=== PATIENT | male | born 1995 | race Caucasian/White ===

== ENCOUNTER 2016-09-07 15:21 | Emergency (ER) | payer MEDICAID ==
--- NOTE | 2016-09-07 16:03 | ED Physician Chart ---
Chief Complaint/HPI - Patient Information Date Seen:: 09/07/16 Time Seen:: 15:58 Chief Complaint:: st/cough History of Present Illness:: pt complains of 1-[address] and cough prod of yellow sputum. he has a hx of asthma but has no inhalers for some time and says he never used them. no feer. no gi sx. no n/v/d. no rash. no stiff neck, no BAHENA he missed work today in [place] where he works in a [employer]. Allergies:: Allergies Allergy/AdvReac Type Severity Reaction Status Date / Time No Known Allergies Allergy Verified 09/07/16 15:37 Vitals:: Vital Signs - 8 hr 09/07/16 15:37 Temp 98.9 F HR 99 RR 16 BP 130/80 O2 Sat % 100 Historian:: Patient Review of Systems - Review of Systems General/Constitutional: No fever, No chills, No weight loss, No weakness, No diaphoresis, No edema, No loss of appetite Skin: No skin lesions, No rash, No bruising Head: No headache, No light-headedness Eyes: No loss of vision, No pain, No diplopia ENT: No earache, No nasal drainage, Sore throat, No tinnitus Neck: No neck pain, No swelling, No thyromegaly, No stiffness, No mass noted Cardio Vascular: No chest pain, No palpitations, No PND, No orthopnea, No edema Pulmonary: No SOB, Cough, Sputum, No wheezing GI: No nausea, No vomiting, No diarrhea, No pain, No melena, No hematochezia, No constipation, No hematemesis G/U: No dysuria, No frequency, No hematuria Musculoskeletal: No bone or joint pain, No back pain, No muscle pain Endocrine: No polyuria, No polydipsia Psychiatric: No prior psych history, No depression, No anxiety, No suicidal ideation Hematopoietic: No bruising, No lymphadenopathy Allergic/Immuno: No urticaria, No angioedema Neurological: No syncope, No focal symptoms, No weakness, No paresthesia, No headache, No seizure, No dizziness, No confusion, No vertigo Past Medical History - Past Medical History Past Medical History: No significant medical hx, Asthma/COPD Social History: Non Smoker Medication: Reviewed Family Medical History - Family Member Mother Living Status: Still Living Hx Family Diabetes: Yes Physical Exam - Physical Examination General/Constitutional: Awake, Well-developed, well-nourished, Alert, No distress, GCS 15, Non-toxic appearing, Ambulatory Head: Atraumatic Eyes: Lids, conjuctiva normal, PERRL, EOMI Skin: Nl inspection, No rash, No skin lesions, No ecchymosis, Well hydrated, No lymphadenopathy ENMT: External ears, nose nl, Nasal exam nl, Lips, teeth, gums nl Other ENMT comments:: mildly red pharynx w no hypertrophy no occlusion. no stridor. Neck: Nontender, Full ROM w/o pain, No JVD, No nuchal rigidity, No bruit, No mass, No stridor Respiratory: Nl effort/Exclusion, Clear to Auscultation, No Wheeze/Rhonchi/Rales Cardio Vascular: RRR, No murmur, gallop, rubs, NL S1 S2 GI: No tenderness/rebounding/guarding, No organomegaly, No hernia, Normal BS's, Nondistended, No mass/bruits, No McBurney tenderness : No CVA tenderness Extremities: No tenderness or effusion, Full ROM, normal strength in all extremities, No edema, Normal digits & nails Neuro/Psych: Alert/oriented, DTR's symmetric, Normal sensory exam, Normal motor strength, Judgement/insight normal, Mood normal, Normal gait, No focal deficits Misc: normal gait, Normal back, No paraspinal tenderness ED Septic Shock - . Is Septic Shock (SBP<90, OR Lactate>4 mmol\L) present?: No - <6hrs of presentation: Vital Signs: Vital Signs - 8 hr 09/07/16 15:37 Temp 98.9 F HR 99 RR 16 BP 130/80 O2 Sat % 100 Reassessment (Disposition) - Reassessment Reassessment Condition:: Unchanged - Diagnosis Diagnosis:: 1 bronchitis 2 pharyngitis - Aftercare/Follow up Instructions Aftercare/Follow-Up Instructions:: Counseled pt regarding lab results/diagnosis & need follow up Medication Prescribed:: rx zpac, albuteol - Patient Disposition Discharge/Transfer:: Home Condition at Disposition:: Stable
== END 2016-09-07 16:05 | disposition home or self-care (01) ==
LOC: ER 15:21
DX: J02.9 Acute pharyngitis, unspecified (principal); J40 Bronchitis, not specified as acute or chronic
CPT/HCPCS: Z7502

== ENCOUNTER 2018-04-23 00:18 | Emergency (ER) | payer MEDICAID ==
--- NOTE | 2018-04-23 00:56 | ED Physician Chart ---
ED Chief Complaint/HPI - Patient Information Date Seen:: 04/23/18 Time Seen:: 00:52 Chief Complaint:: rt 2nd digit pain History of Present Illness:: 22 yr old male who jammed his rt middle finger with pain swelling rt middle finger at pip area some swelling able to move it but has some pain Allergies:: Allergies Allergy/AdvReac Type Severity Reaction Status Date / Time No Known Allergies Allergy Verified 04/23/18 00:32 Vitals:: Vital Signs - 8 hr 04/23/18 00:20 Temp 98.1 F HR 109 RR 20 BP 132/94 O2 Sat % 97 ED Review of Systems - Review of Systems General/Constitutional: No fever Skin: No skin lesions Head: No headache Eyes: No loss of vision ENT: No earache Neck: No neck pain Cardio Vascular: No chest pain Pulmonary: No SOB GI: No vomiting G/U: No dysuria Endocrine: No polyuria Psychiatric: No prior psych history Hematopoietic: No bruising Allergic/Immuno: No urticaria Neurological: No syncope Family Medical History - Family Member Mother History Unknown: Yes Living Status: Still Living Hx Family Diabetes: Yes ED Septic Shock - . Is Septic Shock (SBP<90, OR Lactate>4 mmol\L) present?: No - <6hrs of presentation: Vital Signs: Vital Signs - 8 hr 04/23/18 00:20 Temp 98.1 F HR 109 RR 20 BP 132/94 O2 Sat % 97 ED Reassessment (Disposition) - Reassessment Reassessment Condition:: Unchanged - Diagnosis Diagnosis:: sprain rt ring finger - Patient Disposition Discharge/Transfer:: Home Condition at Disposition:: Stable
--- NOTE | 2018-04-23 08:15 | Diagnostic Imaging Report ---
Right hand (3 views) HISTORY: Pain, trauma No acute bony abnormalities. No fractures. No dislocation. IMPRESSION: No acute abnormalities. In the presence of recent trauma and persistent symptoms, a repeat radiograph in 5-7 days may be helpful for detection of a subtle or occult fracture.
== END 2018-04-23 01:45 | disposition home or self-care (01) ==
LOC: ER 00:18
DX: S63.612A Unspecified sprain of right middle finger, initial encounter (principal); W23.0XXA Caught, crushed, jammed, or pinched between moving objects, initial encounter; Y93.89 Activity, other specified; Y92.89 Other specified places as the place of occurrence of the external cause; Y99.8 Other external cause status
CPT/HCPCS: 73130-TC-RT; Z7502

== ENCOUNTER 2018-10-31 06:16 | Inpatient (IN) | payer MEDICAID ==
--- NOTE | 2018-10-31 06:47 | ED Physician Chart ---
ED Chief Complaint/HPI - Patient Information Date Seen:: 10/31/18 Time Seen:: 06:47 Chief Complaint:: Chest pain History of Present Illness:: 22 yo male had intermittent chest pain for 5 days, awaken this morning by the chest pain that was worse than before. The pain would be triggered by deep breath and cough. The pain is located in the left chest without radiation. Patient denied long distance traveling. 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 Allergies:: Allergies Allergy/AdvReac Type Severity Reaction Status Date / Time No Known Allergies Allergy Verified 10/31/18 06:30 Vitals:: Vital Signs - 8 hr 10/31/18 06:30 Temp 97.9 F HR 65 RR 18 BP 140/71 O2 Sat % 99 ED Review of Systems - Review of Systems General/Constitutional: No fever, No chills Skin: No rash Head: Headache Eyes: No pain ENT: No earache Neck: No neck pain Cardio Vascular: Chest pain, Palpitations Pulmonary: SOB GI: No nausea, No vomiting Musculoskeletal: No bone or joint pain Neurological: No focal symptoms ED Past Medical History - Past Medical History Past Medical History: Asthma/COPD Social History: Non Smoker, No Alcohol, No Drug Use Surgical History: None Family Medical History - Family Member Mother History Unknown: Yes Living Status: Still Living Hx Family Diabetes: Yes ED Physical Exam - Physical Examination General/Constitutional: Awake, Alert Head: Atraumatic Eyes: PERRL, EOMI Skin: No skin lesions ENMT: Nasal exam nl Neck: No nuchal rigidity Cardio Vascular: RRR, No murmur, gallop, rubs, NL S1 S2 GI: No tenderness/rebounding/guarding Extremities: normal strength in all extremities Neuro/Psych: No focal deficits ED Assessment - Assessment General Assessment: Chest pain Obesity Assessment/Comments:: CBC, CMP, Trop, CPK, BNP, lipid panel, D-Dimer CXR, EKG Aspirin 325 mg po Nitroglycerin 0.4 mg sl Morphine 1 mg IV ED Septic Shock - . Is Septic Shock (SBP<90, OR Lactate>4 mmol\L) present?: No - <6hrs of presentation: Vital Signs: Vital Signs - 8 hr 10/31/18 06:30 Temp 97.9 F HR 65 RR 18 BP 140/71 O2 Sat % 99 ED Reassessment (Disposition) - Reassessment Reassessment Condition:: Improved
[2018-10-31] MEDS ORDERED: Sodium Chloride 0.9% 1,000 ML IV ONE (07:05)
[2018-10-31 07:15] LABS: % BASOPHILS 1.5 % (0.0-2.0); % EOSINOPHILS 2.1 % (0.0-5.0); % LYMPHOCYTES 21.2 % (20.0-50.0); % MONOCYTES 6.8 % (2.0-10.0); % NEUTROPHILS 68.4 % (40.0-80.0); BASOPHILE ABSOLUTE 0.2 Th/cumm (0-0.2); EOSINOPHILE ABSOLUTE 0.2 Th/cmm (0.1-0.4); HEMOGLOBIN 16.3 gm/dL (12-16); LYMPHOCYTE ABSOLUTE 2.5 Th/cmm (1.5-3.0); MEAN CELL VOLUME 84.4 fl (80-99); MEAN CORPUSCULAR HEMOGLOBIN 29.2 pg (26.0-30.0); MEAN CORPUSCULAR HGB CONC 34.7 pg (28.0-36.0); MEAN PLATELET VOLUME 10.2 fl; MONOCYTE ABSOLUTE 0.8 Th/cmm (0.3-1.0); NEUTROPHILE ABSOLUTE 8.2 Th/cmm (1.8-8.0); PLATELET COUNT 256 Th/cmm (150-400); RED BLOOD COUNT 5.57 Mil/cmm (4.30-5.70); RED CELL DISTRIBUTION WIDTH 12.3 % (11.5-20.0); WHITE BLOOD COUNT 11.9 Th/cmm (4.8-10.8)
[2018-10-31] MEDS ORDERED: Morphine Sulfate 2 mg/mL 1mL Syr IV STA (07:21)
[2018-10-31 07:41] LABS: ALB/GLOB RATIO 1.6 (1.0-1.8); ALBUMIN 4.5 gm/dL (4.2-5.5); ALKALINE PHOSPHATASE 75 U/L (34-104); ANION GAP 13.4 (7.0-16.0); BILIRUBIN,TOTAL 0.5 mg/dL (0.3-1.0); BUN - UREA NITROGEN 15 mg/dL (7-25); CALCIUM SERUM 9.7 mg/dL (8.6-10.3); CARBON DIOXIDE 27.1 mEq/L (21.0-31.0); CHLORIDE 101 mEq/L (98-107); CHOLESTEROL 156 mg/dL (<200); CREATININE - SERUM 0.9 mg/dL (0.7-1.3); CREATININE KINASE 211 U/L (30-223); GFR AFRICAN-AMERICAN > 60.0 ml/min (>90); GFR NON AFRICAN-AMERICAN > 60.0 ml/min; GLUCOSE 122 mg/dL (70-105); HDL -HIGH DENSITY LIPOPROTEIN 41 mg/dL (23-92); POTASSIUM SERUM 3.5 mEq/L (3.5-5.1); SGOT 85 U/L (13-39); SGPT/ALT 197 U/L (7-52); SODIUM SERUM 138 mEq/L (136-145); TOTAL PROTEIN,SERUM 7.3 gm/dL (6.0-8.3); TRIGLYCERIDES 165 mg/dL (<150)
[2018-10-31] MEDS ORDERED: Morphine Sulfate 2 mg/mL 1mL Syr ONE (07:58)
--- NOTE | 2018-10-31 08:46 | Diagnostic Imaging Report ---
CHEST X-RAY: AP view INDICATION: pain COMPARISON: None FINDINGS: There is mild elevation of the right hemidiaphragm. Suboptimal lung lungs are noted. There is no focal consolidation or pleural effusions The heart is at the upper limits of normal in size. The osseous structures demonstrate no acute abnormalities. IMPRESSION: Suboptimal lung volumes. No focal consolidation identified.
[2018-10-31 12:59] LABS: AMPHETAMINE URINE NEGATIVE (NEGATIVE); BARBITURATES URINE NEGATIVE (NEGATIVE); BENZODIAZEPINES QUAL URINE NEGATIVE (NEGATIVE); CANNABINOID THC POSITIVE (NEGATIVE); COCAINE METABOLITE QUAL URINE NEGATIVE (NEGATIVE); METHADONE URINE NEGATIVE (NEGATIVE); METHAMPHETAMINES QUAL URINE NEGATIVE (NEGATIVE); OPIATES (MORPHINE) QUAL. URINE POSITIVE (NEGATIVE); PHENCYCLIDINE (PCP) URINE NEGATIVE (NEGATIVE); TRICYCLICS (TCA) QUAL. URINE NEGATIVE (NEGATIVE)
--- NOTE | 2018-10-31 14:46 | General Progress Note ---
Subjective - Review of Systems Service Date: 10/31/18 Subjective: Patient has chest pain increased with deep breathing Objective - Results Result Diagrams: 10/31/18 07:00 10/31/18 07:00 Recent Labs: Laboratory Last Values WBC 11.9 Th/cmm (4.8-10.8) H 10/31/18 07:00 RBC 5.57 Mil/cmm (4.30-5.70) 10/31/18 07:00 Hgb 16.3 gm/dL (12-16) 10/31/18 07:00 Hct 47.0 % (41.0-60) 10/31/18 07:00 MCV 84.4 fl (80-99) 10/31/18 07:00 MCH 29.2 pg (26.0-30.0) 10/31/18 07:00 MCHC Differential 34.7 pg (28.0-36.0) 10/31/18 07:00 RDW 12.3 % (11.5-20.0) 10/31/18 07:00 Plt Count 256 Th/cmm (150-400) 10/31/18 07:00 MPV 10.2 fl 10/31/18 07:00 Neutrophils % 68.4 % (40.0-80.0) 10/31/18 07:00 Lymphocytes % 21.2 % (20.0-50.0) 10/31/18 07:00 Monocytes % 6.8 % (2.0-10.0) 10/31/18 07:00 Eosinophils % 2.1 % (0.0-5.0) 10/31/18 07:00 Basophils % 1.5 % (0.0-2.0) 10/31/18 07:00 D-Dimer 183 ng/mL (100-400) 10/31/18 07:00 Sodium 138 mEq/L (136-145) 10/31/18 07:00 Potassium 3.5 mEq/L (3.5-5.1) 10/31/18 07:00 Chloride 101 mEq/L (98-107) 10/31/18 07:00 Carbon Dioxide 27.1 mEq/L (21.0-31.0) 10/31/18 07:00 Anion Gap 13.4 (7.0-16.0) 10/31/18 07:00 BUN 15 mg/dL (7-25) 10/31/18 07:00 Creatinine 0.9 mg/dL (0.7-1.3) 10/31/18 07:00 Est GFR ( Amer) > 60.0 ml/min (>90) 10/31/18 07:00 Est GFR (Non-Af Amer) > 60.0 ml/min 10/31/18 07:00 BUN/Creatinine Ratio 16.7 10/31/18 07:00 Glucose 122 mg/dL (70-105) H 10/31/18 07:00 POC Glucose 111 MG/DL (70 - 105) H 10/31/18 11:48 Calcium 9.7 mg/dL (8.6-10.3) 10/31/18 07:00 Total Bilirubin 0.5 mg/dL (0.3-1.0) 10/31/18 07:00 AST 85 U/L (13-39) H 10/31/18 07:00 ALT 197 U/L (7-52) H 10/31/18 07:00 Alkaline Phosphatase 75 U/L (34-104) 10/31/18 07:00 Creatine Kinase 211 U/L (30-223) 10/31/18 07:00 Troponin I < 0.01 ng/mL (0.01-0.05) L 10/31/18 07:00 B-Natriuretic Peptide < 5.0 pg/mL (5.0-100.0) L 10/31/18 07:00 Total Protein 7.3 gm/dL (6.0-8.3) 10/31/18 07:00 Albumin 4.5 gm/dL (4.2-5.5) 10/31/18 07:00 Globulin 2.8 gm/dL 10/31/18 07:00 Albumin/Globulin Ratio 1.6 (1.0-1.8) 10/31/18 07:00 Triglycerides 165 mg/dL (<150) H 10/31/18 07:00 Cholesterol 156 mg/dL (<200) 10/31/18 07:00 LDL Cholesterol Direct 102 mg/dL (75-193) 10/31/18 07:00 HDL Cholesterol 41 mg/dL (23-92) 10/31/18 07:00 Urine Opiates Screen POSITIVE (NEGATIVE) H 10/31/18 11:45 Urine Methadone Screen NEGATIVE (NEGATIVE) 10/31/18 11:45 Ur Barbiturates Screen NEGATIVE (NEGATIVE) 10/31/18 11:45 Ur Tricyclics Screen NEGATIVE (NEGATIVE) 10/31/18 11:45 Ur Phencyclidine Scrn NEGATIVE (NEGATIVE) 10/31/18 11:45 Amphetamines Screen NEGATIVE (NEGATIVE) 10/31/18 11:45 U Methamphetamines Scrn NEGATIVE (NEGATIVE) 10/31/18 11:45 U Benzodiazepines Scrn NEGATIVE (NEGATIVE) 10/31/18 11:45 U Cocaine Metab Screen NEGATIVE (NEGATIVE) 10/31/18 11:45 U Cannabinoids Screen POSITIVE (NEGATIVE) H 10/31/18 11:45 - Physical Exam Vitals and I&O: Vital Signs Temp 96.3 F 10/31/18 11:58 Pulse 69 10/31/18 11:58 Resp 18 10/31/18 12:56 BP 141/78 10/31/18 11:58 Pulse Ox 97 10/31/18 11:58 Intake & Output 10/30/18 10/31/18 10/31/18 18:59 06:59 18:59 Weight (lbs) 112.491 kg Other: Weight Source Patient stated General: Alert, Oriented x3, No acute distress HEENT: Mucous membr. moist/pink Neck: Supple, +2 carotid pulse wo bruit, Other (no organomegaly) Cardiovascular: Regular rate, Normal S1, Normal S2, Systolic murmurs Lungs: Clear to auscultation Assessment/Plan - Assessment Assessment: Chest pain Marijuana date Normal. Dependence Bradycardia Echocardiogram troponin levels normal
--- NOTE | 2018-10-31 15:43 | Cardiology ---
10/31/[address] Panda Martinez. M-MODE ECHOCARDIOGRAM: Mitral valve, anterior leaflet of mitral valve shows normal excursion, EF velocity. Posterior leaflet of mitral valve shows normal excursion. Left ventricular posterior wall showed normal thickness, excursion. Interventricular septum showed normal thickness, excursion, ejection fraction 70%. Left atrium normal. Aortic root shows normal dimension, normal excursion of aortic leaflets. CONCLUSION: Normal M-mode echo, ejection fraction 70%. 2D ECHO: Long axis view showed normal sized left ventricle with normal wall motion. Mitral valve shows normal excursion. Left atrium normal. Aortic root shows normal dimension, normal excursion of aortic leaflets. Short axis view of mitral valve normal. Short axis view of aortic valve normal. Apical four chamber view showed normal sized left ventricle, left atrium, right ventricle, right atrium, tricuspid and mitral valve. Ejection fraction 70%. CONCLUSION: Normal 2D echo, ejection fraction 70%. Doppler study showed trace mitral regurgitation, trace tricuspid regurgitation, right ventricular systolic pressure 29 mmHg. [facility]# [id number]
[2018-10-31 15:50] VITALS: BP 141/78
--- NOTE | 2018-11-01 00:11 | History & Physical ---
ADMIT DATE: 10/31/2018 CHIEF COMPLAINT: Chest pain. HISTORY OF PRESENT ILLNESS: A 22-year-old male who was admitted for evaluation of left-sided chest pain radiating to the left shoulder area. Denies any associated dizziness, palpitation, no diaphoresis. Denies any underlying history of cardiac history. Denies any palpitations. No nausea, no vomiting, no cough, no fever, no chills. The symptoms started about 4 days ago, progressively got worse. PAST MEDICAL HISTORY: Denies. PAST SURGICAL HISTORY: Denies. FAMILY HISTORY: Noncontributory. SOCIAL HISTORY: Positive for marijuana. He denies any alcohol, tobacco smoking. CURRENT MEDICATIONS: Per medication list. ALLERGIES: No known drug allergies. REVIEW OF SYSTEMS: As per HPI. A 12-point system is negative. PHYSICAL EXAMINATION: VITAL SIGNS: Temperature 97.6, pulse 73, respirations 19, blood pressure 144/76. HEENT: Unremarkable. HEART: S1 and S2, normal. LUNGS: Clear to auscultation bilaterally. ABDOMEN: Soft, nontender, . EXTREMITIES: No edema or calf tenderness. AVAILABLE LABORATORY DATA: Echocardiogram results reviewed. ASSESSMENT: 1. Chest pain. 2. Leukocytosis, most likely reactive. 3. Elevated liver enzymes. 4. Obesity. 5. Marijuana use. PLAN: Admit to tele unit. Cardiology consulted. Serial troponins ordered. Echocardiogram ordered. Case discussed with Cardiology. The patient was counseled on avoidance of drugs. Obtain hepatitis panel, ultrasound of the abdomen. We will order liver enzymes. The patient advised to follow primary MD upon discharge. The patient is medically stable. We will follow up on further cardiac recommendations. [facility]# [id number]
--- NOTE | 2018-11-01 01:46 | Consultation ---
DATE OF CONSULTATION: 10/31/[address] Martinez. HISTORY AND PHYSICAL: This 22 years old male patient, who has been complaining of chest pain for the last 2 days, increased with deep breathing. Following this, the patient took marijuana to get some relief. The patient was brought to the hospital. The patient's troponin levels were normal. The patient is opiate positive as patient got morphine in the ER in the urine collection at a later time. PAST MEDICAL HISTORY: Unremarkable. FAMILY HISTORY: Unremarkable. SOCIAL HISTORY: No history of smoking or alcohol abuse. The patient takes marijuana. PHYSICAL EXAMINATION: VITAL SIGNS: Blood pressure 120/70, pulse 50, respirations 28. HEAD: Normocephalic. No lumps or bumps. EYES: Pupils equal, reactive to light. Fundi showing AV nicking, sclerae white, conjunctivae pink. NECK: Carotid 2+. Normal upstroke. JVD flat. Thyroid not palpable. Lymph nodes not palpable. LUNGS: Clear. HEART: Regular rhythm. S1, S2, S3, S4, sinus bradycardia. ABDOMEN: Soft. Liver and spleen not palpable. No organomegaly. Bowel sounds active. NEUROLOGIC: Unremarkable. EXTREMITIES: Peripheral pulses 2+. No pedal edema. CLINICAL IMPRESSION: 1. Atypical chest pain. 2. Marijuana addict. 3. Sinus bradycardia. PLAN: The patient to continue present care. Start the patient on Motrin and follow the patient in telemetry bed. JOB# [id number]
--- NOTE | 2018-11-01 10:38 | Diagnostic Imaging Report ---
Ultrasound abdomen HISTORY: Elevated liver enzymes COMPARISON: None Technique: Sonography of the abdomen was performed in multiple planes. FINDINGS: Exam is limited due to bowel gas and body habitus. The liver demonstrates mild increased echogenicity and measures 18.6 cm. The liver margins are not well-defined however no obvious focal lesions. No discrete gallstones. There may be minimal gallbladder sludge. No gallbladder wall thickening. The common bile duct measures 2 mm. Evaluation of pancreas is limited due to bowel gas. The right kidney measures 11.1 x 6.5 cm. The left kidney measures 12.5 x 5.8 cm. No evidence of focal lesions or hydronephrosis. Note the renal margins are not well-defined The spleen measures 12.2 cm. IMPRESSION: There may be minimal gallbladder sludge. No discrete gallstones identified. Mild hepatomegaly with mild increased echogenicity which may be due to underlying fatty infiltration. Correlate with liver function tests. Borderline prominent spleen.
--- NOTE | 2018-11-01 11:37 | General Progress Note ---
Subjective - Review of Systems Service Date: 11/01/18 Subjective: Patient has chest pain increased with deep breathing which has improved Objective - Results Result Diagrams: 10/31/18 07:00 10/31/18 07:00 Recent Labs: Laboratory Last Values WBC 11.9 Th/cmm (4.8-10.8) H 10/31/18 07:00 RBC 5.57 Mil/cmm (4.30-5.70) 10/31/18 07:00 Hgb 16.3 gm/dL (12-16) 10/31/18 07:00 Hct 47.0 % (41.0-60) 10/31/18 07:00 MCV 84.4 fl (80-99) 10/31/18 07:00 MCH 29.2 pg (26.0-30.0) 10/31/18 07:00 MCHC Differential 34.7 pg (28.0-36.0) 10/31/18 07:00 RDW 12.3 % (11.5-20.0) 10/31/18 07:00 Plt Count 256 Th/cmm (150-400) 10/31/18 07:00 MPV 10.2 fl 10/31/18 07:00 Neutrophils % 68.4 % (40.0-80.0) 10/31/18 07:00 Lymphocytes % 21.2 % (20.0-50.0) 10/31/18 07:00 Monocytes % 6.8 % (2.0-10.0) 10/31/18 07:00 Eosinophils % 2.1 % (0.0-5.0) 10/31/18 07:00 Basophils % 1.5 % (0.0-2.0) 10/31/18 07:00 D-Dimer 183 ng/mL (100-400) 10/31/18 07:00 Sodium 138 mEq/L (136-145) 10/31/18 07:00 Potassium 3.5 mEq/L (3.5-5.1) 10/31/18 07:00 Chloride 101 mEq/L (98-107) 10/31/18 07:00 Carbon Dioxide 27.1 mEq/L (21.0-31.0) 10/31/18 07:00 Anion Gap 13.4 (7.0-16.0) 10/31/18 07:00 BUN 15 mg/dL (7-25) 10/31/18 07:00 Creatinine 0.9 mg/dL (0.7-1.3) 10/31/18 07:00 Est GFR ( Amer) > 60.0 ml/min (>90) 10/31/18 07:00 Est GFR (Non-Af Amer) > 60.0 ml/min 10/31/18 07:00 BUN/Creatinine Ratio 16.7 10/31/18 07:00 Glucose 122 mg/dL (70-105) H 10/31/18 07:00 POC Glucose 111 MG/DL (70 - 105) H 10/31/18 11:48 Calcium 9.7 mg/dL (8.6-10.3) 10/31/18 07:00 Total Bilirubin 0.5 mg/dL (0.3-1.0) 10/31/18 07:00 AST 85 U/L (13-39) H 10/31/18 07:00 ALT 197 U/L (7-52) H 10/31/18 07:00 Alkaline Phosphatase 75 U/L (34-104) 10/31/18 07:00 Creatine Kinase 211 U/L (30-223) 10/31/18 07:00 Troponin I < 0.01 ng/mL (0.01-0.05) L 10/31/18 22:55 B-Natriuretic Peptide < 5.0 pg/mL (5.0-100.0) L 10/31/18 07:00 Total Protein 7.3 gm/dL (6.0-8.3) 10/31/18 07:00 Albumin 4.5 gm/dL (4.2-5.5) 10/31/18 07:00 Globulin 2.8 gm/dL 10/31/18 07:00 Albumin/Globulin Ratio 1.6 (1.0-1.8) 10/31/18 07:00 Triglycerides 165 mg/dL (<150) H 10/31/18 07:00 Cholesterol 156 mg/dL (<200) 10/31/18 07:00 LDL Cholesterol Direct 102 mg/dL (75-193) 10/31/18 07:00 HDL Cholesterol 41 mg/dL (23-92) 10/31/18 07:00 Urine Opiates Screen POSITIVE (NEGATIVE) H 10/31/18 11:45 Urine Methadone Screen NEGATIVE (NEGATIVE) 10/31/18 11:45 Ur Barbiturates Screen NEGATIVE (NEGATIVE) 10/31/18 11:45 Ur Tricyclics Screen NEGATIVE (NEGATIVE) 10/31/18 11:45 Ur Phencyclidine Scrn NEGATIVE (NEGATIVE) 10/31/18 11:45 Amphetamines Screen NEGATIVE (NEGATIVE) 10/31/18 11:45 U Methamphetamines Scrn NEGATIVE (NEGATIVE) 10/31/18 11:45 U Benzodiazepines Scrn NEGATIVE (NEGATIVE) 10/31/18 11:45 U Cocaine Metab Screen NEGATIVE (NEGATIVE) 10/31/18 11:45 U Cannabinoids Screen POSITIVE (NEGATIVE) H 10/31/18 11:45 - Physical Exam Vitals and I&O: Vital Signs Temp 97.6 F 11/01/18 11:19 Pulse 68 11/01/18 11:19 Resp 19 11/01/18 11:19 BP 130/87 11/01/18 11:19 Pulse Ox 98 11/01/18 11:19 Intake & Output 10/31/18 11/01/18 11/01/18 18:59 06:59 18:59 Intake Total 325 400 Balance 325 400 Weight (lbs) 112.491 kg 112.491 kg Intake: Oral 325 400 Other: # Voids 1 1 Weight Source Bedscale Bedscale Active Medications: Current Medications Ibuprofen (Motrin) 600 mg PO TID PRN PRN Reason: Pain (Moderate) Stop: 12/30/18 20:59 General: Alert, Oriented x3, No acute distress HEENT: Mucous membr. moist/pink Neck: Supple, +2 carotid pulse wo bruit, Other (no organomegaly) Cardiovascular: Regular rate, Normal S1, Normal S2, Systolic murmurs Lungs: Clear to auscultation Assessment/Plan - Assessment Assessment: Chest pain Marijuana date Normal. Dependence Echocardiogram normal Bradycardia Echocardiogram troponin levels normal - Plan Plan: Continue present management echocardiogram troponin levels normal
--- NOTE | 2018-11-01 21:48 | General Progress Note ---
Subjective - Review of Systems Service Date: 11/01/18 Subjective: Patient seen and examined feels much better denied any complaints Objective - Results Result Diagrams: 10/31/18 07:00 10/31/18 07:00 Recent Labs: Laboratory Last Values WBC 11.9 Th/cmm (4.8-10.8) H 10/31/18 07:00 RBC 5.57 Mil/cmm (4.30-5.70) 10/31/18 07:00 Hgb 16.3 gm/dL (12-16) 10/31/18 07:00 Hct 47.0 % (41.0-60) 10/31/18 07:00 MCV 84.4 fl (80-99) 10/31/18 07:00 MCH 29.2 pg (26.0-30.0) 10/31/18 07:00 MCHC Differential 34.7 pg (28.0-36.0) 10/31/18 07:00 RDW 12.3 % (11.5-20.0) 10/31/18 07:00 Plt Count 256 Th/cmm (150-400) 10/31/18 07:00 MPV 10.2 fl 10/31/18 07:00 Neutrophils % 68.4 % (40.0-80.0) 10/31/18 07:00 Lymphocytes % 21.2 % (20.0-50.0) 10/31/18 07:00 Monocytes % 6.8 % (2.0-10.0) 10/31/18 07:00 Eosinophils % 2.1 % (0.0-5.0) 10/31/18 07:00 Basophils % 1.5 % (0.0-2.0) 10/31/18 07:00 D-Dimer 183 ng/mL (100-400) 10/31/18 07:00 Sodium 138 mEq/L (136-145) 10/31/18 07:00 Potassium 3.5 mEq/L (3.5-5.1) 10/31/18 07:00 Chloride 101 mEq/L (98-107) 10/31/18 07:00 Carbon Dioxide 27.1 mEq/L (21.0-31.0) 10/31/18 07:00 Anion Gap 13.4 (7.0-16.0) 10/31/18 07:00 BUN 15 mg/dL (7-25) 10/31/18 07:00 Creatinine 0.9 mg/dL (0.7-1.3) 10/31/18 07:00 Est GFR ( Amer) > 60.0 ml/min (>90) 10/31/18 07:00 Est GFR (Non-Af Amer) > 60.0 ml/min 10/31/18 07:00 BUN/Creatinine Ratio 16.7 10/31/18 07:00 Glucose 122 mg/dL (70-105) H 10/31/18 07:00 POC Glucose 111 MG/DL (70 - 105) H 10/31/18 11:48 Calcium 9.7 mg/dL (8.6-10.3) 10/31/18 07:00 Total Bilirubin 0.5 mg/dL (0.3-1.0) 10/31/18 07:00 AST 85 U/L (13-39) H 10/31/18 07:00 ALT 197 U/L (7-52) H 10/31/18 07:00 Alkaline Phosphatase 75 U/L (34-104) 10/31/18 07:00 Creatine Kinase 211 U/L (30-223) 10/31/18 07:00 Troponin I < 0.01 ng/mL (0.01-0.05) L 10/31/18 22:55 B-Natriuretic Peptide < 5.0 pg/mL (5.0-100.0) L 10/31/18 07:00 Total Protein 7.3 gm/dL (6.0-8.3) 10/31/18 07:00 Albumin 4.5 gm/dL (4.2-5.5) 10/31/18 07:00 Globulin 2.8 gm/dL 10/31/18 07:00 Albumin/Globulin Ratio 1.6 (1.0-1.8) 10/31/18 07:00 Triglycerides 165 mg/dL (<150) H 10/31/18 07:00 Cholesterol 156 mg/dL (<200) 10/31/18 07:00 LDL Cholesterol Direct 102 mg/dL (75-193) 10/31/18 07:00 HDL Cholesterol 41 mg/dL (23-92) 10/31/18 07:00 Urine Opiates Screen POSITIVE (NEGATIVE) H 10/31/18 11:45 Urine Methadone Screen NEGATIVE (NEGATIVE) 10/31/18 11:45 Ur Barbiturates Screen NEGATIVE (NEGATIVE) 10/31/18 11:45 Ur Tricyclics Screen NEGATIVE (NEGATIVE) 10/31/18 11:45 Ur Phencyclidine Scrn NEGATIVE (NEGATIVE) 10/31/18 11:45 Amphetamines Screen NEGATIVE (NEGATIVE) 10/31/18 11:45 U Methamphetamines Scrn NEGATIVE (NEGATIVE) 10/31/18 11:45 U Benzodiazepines Scrn NEGATIVE (NEGATIVE) 10/31/18 11:45 U Cocaine Metab Screen NEGATIVE (NEGATIVE) 10/31/18 11:45 U Cannabinoids Screen POSITIVE (NEGATIVE) H 10/31/18 11:45 - Physical Exam Vitals and I&O: Vital Signs Temp 98.2 F 11/01/18 17:43 Pulse 74 11/01/18 17:43 Resp 18 11/01/18 17:43 BP 130/79 11/01/18 17:43 Pulse Ox 97 11/01/18 17:43 Intake & Output 11/01/18 11/01/18 11/02/18 06:59 18:59 06:59 Intake Total 1000 Balance 1000 Weight (lbs) 112.491 kg Intake: Oral 1000 Other: # Voids 3 Weight Source Bedscale General: Alert, Oriented x3, No acute distress HEENT: Mucous membr. moist/pink Neck: Supple, +2 carotid pulse wo bruit, Other (no organomegaly) Cardiovascular: Regular rate, Normal S1, Normal S2, Systolic murmurs Lungs: Clear to auscultation, Normal air movement Assessment/Plan - Assessment Assessment: Atypical chest pain Obesity Fatty liver - Plan Plan: DC home today Cardiac work up negative Out patient PCP follow up advised
[2018-11-02 06:05] LABS: HEP A AB IGM Negative (Negative); HEP B CORE IGM Negative (Negative); HEP B SURFACE AG QL Negative (Negative); HEP C ANTIBODY <0.1 s/co ratio (0.0-0.9)
== END 2018-11-01 18:00 | disposition home or self-care (01) | DRG 198 ==
LOC: ER 06:16 → TELE 11:15
PROVIDERS: ADMIT Family Medicine; ATTEND Family Medicine
DX: R07.89 Other chest pain (principal); I20.0 Unstable angina; K76.0 Fatty (change of) liver, not elsewhere classified; D72.829 Elevated white blood cell count, unspecified; E66.9 Obesity, unspecified; R09.1 Pleurisy; J44.9 Chronic obstructive pulmonary disease, unspecified; F12.20 Cannabis dependence, uncomplicated; R00.1 Bradycardia, unspecified; Z68.34 Body mass index [BMI] 34.0-34.9, adult
CPT/HCPCS: 36415-UA; 71045-TC; 76700-TC; 80053-TC; 80061-TC; 80074-90; 80307; 82550-TC; 82948-90; 83880-TC; 84484-TC; 85025-TC; 85379-TC; 93005; 96374; J2270; J7030